=== PATIENT | male | born 1990 | race Two or more races ===

== ENCOUNTER 2016-08-21 17:37 | Emergency (ER) | payer SELFPAY ==
[2016-08-21 18:08] VITALS: BP 128/76
--- NOTE | 2016-08-21 18:21 | UC ---
[facility] HPI - HPI Summary HPI Summary: broke a tooth last year and got antibiotics from the dentist--pain resolved, did not do any further treatment--For the past week he has had return and increasing amount of pain--some swelling noted in jaw last night - History of Current Complaint Chief Complaint: UCDentalProblem Stated Complaint: TOOTH PAIN Time Seen by Provider: 08/21/16 18:16 Hx Obtained From: Patient Onset/Duration: Lasting Weeks, Worse Since - past few days Severity: Moderate Pain Intensity: 8 Pain Scale Used: 0-10 Numeric Aggravating: Heat, Cold, Chewing Alleviating: Nothing Related History: Previous Dental Care on Same Tooth, Swelling - Allergies/Home Medications Allergies/Adverse Reactions: Allergies Allergy/AdvReac Type Severity Reaction Status Date / Time No Known Allergies Allergy Verified 08/21/16 18:00 PMH/Surg Hx/FS Hx/Imm Hx Previously Healthy: No Endocrine History Of: Denies: Diabetes, Thyroid Disease Cardiovascular History Of: Denies: Cardiac Disorders, Hypertension Respiratory History Of: Reports: Asthma Denies: COPD GI/ History Of: Reports: Gastroesophageal Reflux Denies: Ulcer - Surgical History Surgical History: Yes Surgery Procedure, Year, and Place: ENDOSCOPY. RIGHT leg fracture. LEFT wrist fracture - Family History Known Family History: Positive: Respiratory Disease - asthma - Social History Occupation: Employed Full-time - [employer] Lives: With Family Alcohol Use: Rare Substance Use Type: Marijuana Substance Use Comment - Amount & Last Used: 04/29/14 Smoking Status (MU): Light Every Day Tobacco Smoker Type: Cigarettes Amount Used/How Often: 2.5 cigs Have You Smoked in the Last Year: Yes - in the process of quitting Review of Systems Constitutional: Negative Skin: Negative Eyes: Negative ENT: Dental Pain - #19 is broken Respiratory: Negative Cardiovascular: Negative Gastrointestinal: Negative Genitourinary: Negative Motor: Negative Neurovascular: Negative Musculoskeletal: Negative Neurological: Negative Psychological: Negative All Other Systems Reviewed And Are Negative: Yes Physical Exam Triage Information Reviewed: Yes Appearance: Well-Appearing, No Pain Distress, Well-Nourished Vital Signs: Initial Vital Signs Temp 98 F 08/21/16 18:00 Pulse 84 08/21/16 18:00 Resp 18 08/21/16 18:00 BP 128/76 08/21/16 18:00 Pulse Ox 97 01/14/17 18:00 Vital Signs Reviewed: Yes Eye Exam: Normal Eyes: Positive: Conjunctiva Clear ENT Exam: Normal ENT: Positive: Normal ENT inspection, Hearing grossly normal, Pharynx normal, TMs normal. Negative: Nasal congestion, Nasal drainage, Trismus, Muffled/ hoarse voice Dental Exam: Other Dental: Positive: Percussion Tenderness @ - 19, Abscess @ - left lower jaw Neck exam: Normal Neck: Positive: Supple, Nontender, No Lymphadenopathy Respiratory Exam: Normal Respiratory: Positive: Chest non-tender, Lungs clear, Normal breath sounds, No respiratory distress, No accessory muscle use Cardiovascular Exam: Normal Cardiovascular: Positive: RRR, No Murmur, Pulses Normal, Brisk Capillary Refill Musculoskeletal Exam: Normal Musculoskeletal: Positive: Strength Intact, ROM Intact, No Edema Neurological Exam: Normal Neurological: Positive: Alert, Muscle Tone Normal Psychological Exam: Normal Psychological: Positive: Normal Response To Family Skin Exam: Normal Dental Complaint Course/Dx - Course Course Of Treatment: Pain med , antibiodic, resources and referral for further care, smoking cesation information and support - Differential Dx/Diagnosis Differential Diagnosis/Dx: Dental Abscess, Dental Caries, Fractured Tooth, Odontogenic Pain Provider Diagnoses: Dental fracture #19, with abscess, nicotine dependant Discharge - Discharge Plan Condition: Stable Disposition: HOME Prescriptions: Amoxicillin CAP* 500 mg PO TID #29 cap HYDROcodone/ACETAMIN 5-325 MG* [[place] 5-325 TAB*] 1 tab PO Q6H PRN #16 tab MDD 4 PRN Reason: pain Naproxen [Naproxen 500 MG TABS] 500 mg PO BID PRN #20 tab PRN Reason: Pain Patient Education Materials: Dental Abscess (ED), Dental Caries (ED) Referrals: [facility]ERR[facility] [Outside] - If Needed No Primary Care Phys,NOPCP [Primary Care Provider] - Additional Instructions: See Dental Referral Sheet--For assistance in receiving dental care
[2016-08-21] MEDS ORDERED: HYDROcodone/ACETAMIN 5-325 MG* 1 TAB PO ONE (18:27)
[2016-08-21] MEDS ORDERED: Amoxicillin PO (*) 500 MG CAP PO ONE (18:27)
== END 2016-08-21 18:39 | disposition home or self-care (01) ==
LOC: UCEAST 17:37
DX: K03.81 Cracked tooth (principal); K04.7 Periapical abscess without sinus; F17.210 Nicotine dependence, cigarettes, uncomplicated
CPT/HCPCS: 99212; A9270-GY; G0463

== ENCOUNTER 2016-11-12 11:36 | Emergency (ER) | payer SELFPAY ==
[2016-11-12] MEDS ORDERED: Lidocaine 1% MPF* 2 ML VIAL ONE (16:17)
[2016-11-12 17:08] VITALS: BP 137/75
--- NOTE | 2016-11-12 19:05 | UC ---
Bryon Hendrickson Erika, scribed for Abbie Scott DO on 11/12/16 at 1552 . Laceration HPI - HPI Summary HPI Summary: Patient is a 26-year-old male presenting to [facility] with a CC of right wrist laceration. Patient reports that he slipped and fell on his steps while he was leaving his house at 10:00 this morning. Patient denies any other symptoms, including fever, chills, diaphoresis, headache, cough, chest pain, nausea, vomiting, diarrhea, myalgias, and rashes. Hx asthma. FHx HTN, DM, CA. Patient is a light every day smoker, but is trying to quit. Patient works as a cook. - History Of Current Complaint Chief Complaint: UCLaceration Stated Complaint: WRIST LAC Time Seen by Provider: 11/12/16 15:38 Hx Obtained From: Patient Laceration Location: Wrist - R Onset/Duration: Sudden Onset, Lasting Hours, Still Present Severity: Moderate Pain Intensity: 0 Pain Scale Used: 0-10 Numeric Aggravating Factors: Nothing - Allergies/Home Medications Allergies/Adverse Reactions: Allergies Allergy/AdvReac Type Severity Reaction Status Date / Time No Known Allergies Allergy Verified 11/12/16 14:35 PMH/Surg Hx/FS Hx/Imm Hx Endocrine History Of: Denies: Diabetes, Thyroid Disease Cardiovascular History Of: Denies: Cardiac Disorders, Hypertension Respiratory History Of: Reports: Asthma Denies: COPD GI/ History Of: Reports: Gastroesophageal Reflux Denies: Ulcer - Surgical History Surgical History: Yes Surgery Procedure, Year, and Place: ENDOSCOPY. RIGHT leg fracture. LEFT wrist fracture - Family History Known Family History: Positive: Cardiac Disease, Diabetes, Respiratory Disease - asthma, Other - [place] - Social History Occupation: Employed Full-time Alcohol Use: None Substance Use Type: Marijuana Substance Use Comment - Amount & Last Used: 04/29/14 Smoking Status (MU): Light Every Day Tobacco Smoker Type: Cigarettes Amount Used/How Often: 2.5 cigs Have You Smoked in the Last Year: Yes - in the process of quitting Cessation Counseling: Patient Advised to Stop - Immunization History Most Recent Tetanus Shot: unknown Review of Systems Constitutional: Negative Skin: Other - Laceration at the right wrist Eyes: Negative ENT: Negative Respiratory: Negative Cardiovascular: Negative Gastrointestinal: Negative Genitourinary: Negative Motor: Negative Neurovascular: Negative Musculoskeletal: Negative Neurological: Negative Psychological: Negative All Other Systems Reviewed And Are Negative: Yes Physical Exam Triage Information Reviewed: Yes Appearance: Well-Appearing, No Pain Distress, Well-Nourished Vital Signs: Initial Vital Signs Temp 98.9 F 11/12/16 14:37 Pulse 78 11/12/16 14:37 Resp 14 11/12/16 14:37 BP 132/79 11/12/16 14:37 Pulse Ox 100 11/12/16 14:37 Vital Signs Reviewed: Yes Eyes: Positive: Conjunctiva Clear. Negative: Discharge ENT: Positive: Hearing grossly normal. Negative: Muffled/hoarse voice Neck: Positive: Supple, Nontender Respiratory: Positive: Lungs clear, Normal breath sounds, No respiratory distress, No accessory muscle use Cardiovascular: Positive: RRR, No Murmur Musculoskeletal Exam: Normal, Other - Bones of the right hand and wrist were palpated extensively and no tenderness was elicited Neurological: Positive: Alert, Muscle Tone Normal Psychological Exam: Normal Psychological: Positive: Age Appropriate Behavior Skin Exam: Other - 2 cm laceration at the right wrist Laceration Repair - Laceration Repair 1 Description: Linear - at the right wrist Laceration Size After Repair: Length (cm) - 2, Width (mm) - 1, Depth (mm) - 1 Modified For Repair: No Type Injection: Local Anesthesia Used: 1.0% Lido Cleansing Completed Via Routine Prep: Yes Irrigation With Pressure Irrigation Device: Yes Closure Material: Sutures - 5 Closure Method: Single Layer Suture Of: Skin Suture Type: Nylon - 5.0 Laceration Course/Dx - Differential Dx - Laceration/Wound Differental Diagnoses: Abrasion, Laceration Provider Diagnoses: LACERATION REPAIR Discharge - Discharge Plan Condition: Stable Disposition: HOME Patient Education Materials: Laceration (ED) Referrals: No Primary Care Phys,NOPCP [Primary Care Provider] - Additional Instructions: FOLLOW-UP CARE: RETURN HERE FOR SUTURE REMOVAL IN 7-9 DAYS. AND You should establish with a private physician for follow-up care. If you are unable to get a timely appointment, or if you are worsening, call us or return for re-evaluation. An additional resource available to assist in finding the appropriate physician for your health care needs is the Physician Referral Center. You may contact them by calling [phone]. The documentation as recorded by the Bryon valladares Erika accurately reflects the service I personally performed and the decisions made by me, Abbie Scott DO.
== END 2016-11-12 17:09 | disposition home or self-care (01) ==
LOC: UCEAST 11:36
DX: S61.511A Laceration without foreign body of right wrist, initial encounter (principal); W01.0XXA Fall on same level from slipping, tripping and stumbling without subsequent striking against object, initial encounter; Y92.009 Unspecified place in unspecified non-institutional (private) residence as the place of occurrence of the external cause; F17.200 Nicotine dependence, unspecified, uncomplicated; J45.909 Unspecified asthma, uncomplicated
CPT/HCPCS: 12001; 99211; G0463

== ENCOUNTER 2016-12-06 16:20 | Emergency (ER) | payer SELFPAY ==
[2016-12-06 19:12] VITALS: BP 132/102
--- NOTE | 2016-12-06 19:22 | UC ---
[facility] HPI - HPI Summary HPI Summary: L lower rear molar pain has been chronic for months, marked increase in pain with trace swelling in the last 48 hours. Denies fever. Knows tooth #17 is impacted and needs it out, is in the process of getting insurance. Needs to wait until the end of the month because he needs to work through graduation season. - History of Current Complaint Chief Complaint: UCDentalProblem Stated Complaint: TOOTH PAIN Time Seen by Provider: 12/06/16 19:02 Hx Obtained From: Patient Onset/Duration: Gradual Onset Severity: Moderate Aggravating: Chewing Alleviating: Nothing Related History: Swelling - Allergies/Home Medications Allergies/Adverse Reactions: Allergies Allergy/AdvReac Type Severity Reaction Status Date / Time No Known Allergies Allergy Verified 12/06/16 19:12 PMH/Surg Hx/FS Hx/Imm Hx Endocrine History Of: Denies: Diabetes, Thyroid Disease Cardiovascular History Of: Denies: Cardiac Disorders, Hypertension Respiratory History Of: Reports: Asthma Denies: COPD GI/ History Of: Reports: Gastroesophageal Reflux Denies: Ulcer - Surgical History Surgical History: Yes Surgery Procedure, Year, and Place: ENDOSCOPY. RIGHT leg fracture. LEFT wrist fracture - Family History Known Family History: Positive: Cardiac Disease, Diabetes, Respiratory Disease - asthma, Other - CA - Social History Occupation: Employed Full-time Alcohol Use: None Substance Use Type: Marijuana Substance Use Comment - Amount & Last Used: 04/29/14 Smoking Status (MU): Light Every Day Tobacco Smoker Type: Cigarettes Amount Used/How Often: 2.5 cigs Have You Smoked in the Last Year: Yes - in the process of quitting - Immunization History Most Recent Tetanus Shot: unknown Review of Systems Constitutional: Negative Skin: Negative Eyes: Negative ENT: Dental Pain Respiratory: Negative Cardiovascular: Negative Gastrointestinal: Negative Genitourinary: Negative Motor: Negative Neurovascular: Negative Musculoskeletal: Negative Neurological: Negative Psychological: Negative All Other Systems Reviewed And Are Negative: Yes Physical Exam Triage Information Reviewed: Yes Appearance: Well-Appearing, Well-Nourished, Pain Distress - mild Vital Signs: Initial Vital Signs Temp 98.1 F 12/06/16 19:09 Pulse 69 12/06/16 19:09 Resp 20 12/06/16 19:09 BP 132/102 12/06/16 19:09 Pulse Ox 99 12/06/16 19:09 Vital Signs Reviewed: Yes Eye Exam: Normal Eyes: Positive: Conjunctiva Clear ENT Exam: Normal ENT: Positive: Normal ENT inspection, Hearing grossly normal, Pharynx normal, TMs normal Dental: Positive: Percussion Tenderness @ - #17 Neck exam: Normal Neck: Positive: Supple, Nontender Respiratory Exam: Normal Respiratory: Positive: Chest non-tender, Lungs clear, Normal breath sounds, No respiratory distress, No accessory muscle use Cardiovascular Exam: Normal Cardiovascular: Positive: RRR, No Murmur Musculoskeletal Exam: Normal Neurological Exam: Normal Neurological: Positive: Alert Psychological Exam: Normal Skin Exam: Normal Dental Complaint Course/Dx - Differential Dx/Diagnosis Provider Diagnoses: impacted tooth #17 Discharge - Discharge Plan Condition: Stable Disposition: HOME Prescriptions: HYDROcodone/ACETAMIN 5-325 MG* [[place] 5-325 TAB*] 1 tab PO Q6H PRN #12 tab MDD 4 PRN Reason: Pain Naproxen Sodium [Naproxen Sodium 500 MG TAB] 500 mg PO BID #20 tab Penicillin VK TAB 500 MG(NF) [Penicillin VK 500 mg Tab(NF)] 500 mg PO QID #28 tab Patient Education Materials: Toothache (ED) Forms: *Work Release Referrals: No Primary Care Phys,NOPCP [Primary Care Provider] - Additional Instructions: Please follow up with a dentist as soon as possible.
== END 2016-12-06 19:30 | disposition home or self-care (01) ==
LOC: UCEAST 16:20
DX: K01.1 Impacted teeth (principal); J45.909 Unspecified asthma, uncomplicated; K21.9 Gastro-esophageal reflux disease without esophagitis; F17.210 Nicotine dependence, cigarettes, uncomplicated
CPT/HCPCS: 99212; G0463

== ENCOUNTER 2017-01-21 16:50 | Emergency (ER) | payer SELFPAY ==
--- NOTE | 2017-01-21 18:19 | ED ---
Throat Pain/Nasal Congestion - HPI Summary HPI Summary: Patient arrives to ED with CC of pain over lower left molar radiating to the jaw and ear and neck. Denies trismus, drooling or dysphagia. Pain is 10/10, throbbing and has been present x 2 days. Denies airway compromise or SOB. Denies ear pain, eye pain, blurry vision or double vision. He has asthma controlled on an inhaler but is otherwise healthy. Left lower jaw began as a "lump" and began to throb with radiation on day 2. Pain is worse with chewing and cold drinks, better with ibuprofen, but only improves slightly. Patient denies dental care for several years. States he cannot afford a dentist. Denies previous dental infections. - History of Current Complaint Chief Complaint: EDDentalPain Time Seen by Provider: 01/21/17 17:56 Hx Obtained From: Patient Onset/Duration: Sudden Onset Severity: Moderate Associated Signs And Symptoms: Positive: Negative - Allergies/Home Medications Allergies/Adverse Reactions: Allergies Allergy/AdvReac Type Severity Reaction Status Date / Time No Known Allergies Allergy Verified 12/06/16 19:12 PMH/Surg Hx/FS Hx/Imm Hx Previously Healthy: Yes Endocrine/Hematology History: Denies: Hx Diabetes, Hx Thyroid Disease Cardiovascular History: Denies: Hx Hypertension Respiratory History: Reports: Hx Asthma Denies: Hx Chronic Obstructive Pulmonary Disease (COPD) GI History: Denies: Hx Ulcer - Surgical History Surgery Procedure, Year, and Place: ENDOSCOPY. RIGHT leg fracture. LEFT wrist fracture - Immunization History Date of Tetanus Vaccine: <10years Hx Pertussis Vaccination: No Immunizations Up to Date: Unable to Obtain/Confirm Infectious Disease History: No Infectious Disease History: Reports: Hx Shingles Denies: Hx Hepatitis, Hx Human Immunodeficiency Virus (HIV), History Other Infectious Disease, Traveled Outside the [place] in Last 30 Days - Family History Known Family History: Positive: Cardiac Disease, Diabetes, Respiratory Disease - asthma, Other - CA - Social History Occupation: Employed Full-time Lives: With Family Alcohol Use: None Hx Substance Use: No Substance Use Type: Reports: Marijuana Substance Use Comment - Amount & Last Used: daily Hx Tobacco Use: Yes Smoking Status (MU): Light Every Day Tobacco Smoker Type: Cigarettes Amount Used/How Often: 2.5 cigs Have You Smoked in the Last Year: Yes - in the process of quitting Review of Systems Constitutional: Negative Eyes: Negative Positive: Dental Pain Cardiovascular: Negative Respiratory: Negative Positive: no symptoms reported, see HPI Musculoskeletal: Negative Neurological: Negative Psychological: Normal All Other Systems Reviewed And Are Negative: Yes Physical Exam Triage Information Reviewed: Yes Vital Signs On Initial Exam: Initial Vitals Temp Pulse Resp BP Pulse Ox 97.7 F 98 20 120/75 98 01/21/17 16:52 01/21/17 16:52 01/21/17 16:52 01/21/17 16:52 01/21/17 16:52 Vital Signs Reviewed: Yes Appearance: Positive: Well-Appearing, Well-Nourished Skin: Positive: Warm, Skin Color Reflects Adequate Perfusion Head/Face: Positive: Normal Head/Face Inspection Eyes: Positive: EOMI, HARRY, Conjunctiva Clear ENT: Positive: Pharynx normal Dental: Positive: Percussion Tenderness @ - left lower mandible, Gross Decay/ Caries @ - left upper and lower canines, Abscess @ - left lower #19 Cardiovascular: Positive: RRR, Pulses are Symmetrical in both Upper and Lower Extremities Musculoskeletal: Positive: Normal, Strength/ROM Intact Neurological: Positive: Speech Normal Psychiatric: Positive: Normal AVPU Assessment: Alert Diagnostics - Vital Signs Vital Signs Temp Pulse Resp BP Pulse Ox 01/21/17 16:55 97.7 F 96 20 120/75 97 01/21/17 16:52 97.7 F 98 20 120/75 98 - Laboratory Lab Statement: Any lab studies that have been ordered have been reviewed, and results considered in the medical decision making process. EENT Course/Dx - Course Course Of Treatment: Dental abscess seen over area of concern. Erythema at site of pain. No drainage from area. Several dental caries, cavities, crowding and broken teeth throughout. Pain on palpation over lower left mandible. Slight tenderness throughout the left neck. No TMJ tenderness. No pain with opening and closing mouth. Poor dental hygiene and outpatient dental care. Will treat for possible dental infection/abscess based on symptoms of pain and radiation to jaw and ear. No allergies. Will treat with Pencillin. Pain medication X 1 day given. Patient to follow up immediately with dentist.Patient made aware of plan and is OK with discharge. Patient will follow up with PCP and return if symptoms become worse. Return precautions given, medications and side effects reviewed. - Differential Diagnoses Differential Diagnoses: Dental Abscess, Dental Caries, Odontogenic Pain - Diagnoses Provider Diagnoses: Dental abscess Discharge - Discharge Plan Condition: Stable Disposition: HOME Prescriptions: HYDROcodone/ACETAMIN 5-325 MG* [[place] 5-325 TAB*] 1 tab PO Q4H PRN #6 tab MDD 6 PRN Reason: Pain Penicillin VK TAB 500 MG(NF) [Penicillin VK 500 mg Tab(NF)] 500 mg PO QID #28 tab MDD 4 Referrals: No Primary Care Phys,NOPCP [Primary Care Provider] - Additional Instructions: You have been diagnosed with dental pain with possible infection: Antibiotics as prescribed to you. 500mg Penicillin 4 times daily for 7 days Salt water rinses several times per day will improve healing time. Ibuprofen 600mg three times daily with meals for discomfort. May use lollicaines over the area for comfort. Follow up with a dentist for routine care to prevent recurrence of infections. If fever, worsening pain or swelling develops, see your PCP, dentist or come back to the Emergency Department. Images - Images Dental: 1 - abscess without drainage
[2017-01-21 18:23] VITALS: BP 127/68
== END 2017-01-21 18:22 | disposition home or self-care (01) ==
LOC: ED 16:50
DX: K04.7 Periapical abscess without sinus (principal); J45.909 Unspecified asthma, uncomplicated; F12.90 Cannabis use, unspecified, uncomplicated; F17.210 Nicotine dependence, cigarettes, uncomplicated
CPT/HCPCS: 99282

== ENCOUNTER 2017-01-24 11:46 | Emergency (ER) | payer SELFPAY ==
[2017-01-24 13:10] VITALS: BP 123/73
--- NOTE | 2017-01-24 13:50 | UC ---
Dental HPI - HPI Summary HPI Summary: LEFT SIDED DENTAL PAIN AND SWELLING (#17, 18, 19, 20) HAS BEEN HAVING ISSUES SINCE JUNE. HAS BEEN ON PCN (12/06/16, AND 01/21/17); HAS TRIED TO MAKE DENTAL APPOINTMENTS , BUT NO ONE WILL SEE HIM UNTIL SWELLING GOES DOWN. NO FEVER. NO DROOLING. NO NECK PAIN OR TONGUE PAIN. 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 RIGHT leg fracture. LEFT wrist fracture - Family History Known Family History: Positive: Cardiac Disease, Diabetes, Respiratory Disease - asthma, Other - CA - Social History Occupation: Employed Full-time Lives: With Family Alcohol Use: Rare Substance Use Type: Marijuana Substance Use Comment - Amount & Last Used: daily Smoking Status (MU): Light Every Day Tobacco Smoker Type: Cigarettes Amount Used/How Often: 2.5 cigs Have You Smoked in the Last Year: Yes - in the process of quitting - Immunization History Most Recent Tetanus Shot: unknown Review of Systems Constitutional: Negative Skin: Negative Eyes: Negative ENT: Dental Pain Respiratory: Negative Cardiovascular: Negative Gastrointestinal: Negative Genitourinary: Negative Motor: Negative Neurovascular: Negative Musculoskeletal: Negative Neurological: Negative Psychological: Negative All Other Systems Reviewed And Are Negative: Yes Physical Exam Triage Information Reviewed: Yes Appearance: Well-Appearing, No Pain Distress, Well-Nourished Vital Signs: Initial Vital Signs Temp 98.5 F 01/24/17 13:04 Pulse 74 01/24/17 13:04 Resp 16 01/24/17 13:04 BP 123/73 01/24/17 13:04 Pulse Ox 100 01/24/17 13:04 Vital Signs Reviewed: Yes Eye Exam: Normal ENT Exam: Normal ENT: Positive: Normal ENT inspection, Hearing grossly normal, Pharynx normal, TMs normal Dental: Positive: Percussion Tenderness @ - 17,18,19,20, Abscess @ - 17,18,19,20 Neck exam: Normal Neck: Positive: Supple, Nontender, No Lymphadenopathy Respiratory Exam: Normal Respiratory: Positive: Chest non-tender, Lungs clear, Normal breath sounds, No respiratory distress, No accessory muscle use Cardiovascular Exam: Normal Cardiovascular: Positive: RRR, No Murmur, Pulses Normal Abdominal Exam: Normal Abdomen Description: Positive: Nontender, No Organomegaly Musculoskeletal Exam: Normal Neurological Exam: Normal Psychological Exam: Normal Skin Exam: Normal Dental Complaint Course/Dx - Differential Dx/Diagnosis Differential Diagnosis/Dx: Dental Abscess, Dental Caries, Fractured Tooth, Chung's Angina, Mandibular Trauma, Odontogenic Pain, Peridontic Disease, Peritonsillar Abcess Provider Diagnoses: DENTAL ABSCESS LEFT LOWER JAW - Physician Notification/Consults Instructed by Provider To: Have Pt Call For Appt. Discharge - Discharge Plan Condition: Stable Disposition: HOME Prescriptions: Clindamycin Cap(NF) [Cleocin 300 mg Cap(NF)] 300 mg PO QID #40 cap HYDROcodone/ACETAMIN 5-325 MG* [[place] 5-325 TAB*] 1 tab PO Q8H PRN #12 tab MDD THREE TABS PRN Reason: Pain - Moderate Patient Education Materials: Dental Abscess (ED) Referrals: [facility]YS[facility]IAN REFERRAL [Outside] No Primary Care Phys,NOPCP [Primary Care Provider] - Additional Instructions: dental referral sheets given Images Dental: 1 - edema tenderness here
== END 2017-01-24 13:50 | disposition home or self-care (01) ==
LOC: UCEAST 11:46
DX: K04.7 Periapical abscess without sinus (principal); F17.210 Nicotine dependence, cigarettes, uncomplicated
CPT/HCPCS: 99212; G0463

== ENCOUNTER 2017-01-27 11:00 | Emergency (ER) | payer SELFPAY ==
[2017-01-27] MEDS ORDERED: oxyCODONE/Acetamin 5/325 MG* TAB PO ONE (12:59)
--- NOTE | 2017-01-27 14:04 | ED ---
Throat Pain/Nasal Congestion - HPI Summary HPI Summary: Pt here w/ abscess along Lt lower jaw x weeks. Has had 2 rounds of anbx w/o relief (currently taking clindamycin). Pain is getting worse - drinking clear liquids only. Has been taking norco but last pill today. Denies fever, chills, drainage, trouble swallowing or breathing. Does not have a dentist but called today to try to get an appointment w/ [facility] [place]. 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 - Allergies/Home Medications Allergies/Adverse Reactions: Allergies Allergy/AdvReac Type Severity Reaction Status Date / Time No Known Allergies Allergy Verified 12/06/16 19:12 PMH/Surg Hx/FS Hx/Imm Hx Previously Healthy: Yes Endocrine/Hematology History: Denies: Hx Anticoagulant Therapy, Hx Blood Disorders, Hx Diabetes, Hx Thyroid Disease, Autoimmune Disease Cardiovascular History: Denies: Hx Hypertension Respiratory History: Reports: Hx Asthma Denies: Hx Chronic Obstructive Pulmonary Disease (COPD) GI History: Denies: Hx Ulcer - Surgical History Surgery Procedure, Year, and Place: ENDOSCOPY. RIGHT leg fracture. LEFT wrist fracture - Immunization History Date of Tetanus Vaccine: <10years Infectious Disease History: No Infectious Disease History: Reports: Hx Shingles Denies: Hx Hepatitis, Hx Human Immunodeficiency Virus (HIV), History Other Infectious Disease, Traveled Outside the [place] in Last 30 Days - Family History Known Family History: Positive: Cardiac Disease, Diabetes, Respiratory Disease - asthma, Other - [place] - Social History Lives: With Family Alcohol Use: Rare Hx Substance Use: No Substance Use Type: Reports: Marijuana Substance Use Comment - Amount & Last Used: daily Hx Tobacco Use: Yes Smoking Status (MU): Current Every Day Smoker Type: Cigarettes Amount Used/How Often: 2.5 cigs Have You Smoked in the Last Year: Yes - in the process of quitting Review of Systems Constitutional: Negative Negative: Fever, Chills Positive: Dental Pain - see HPI. Negative: Ear Ache, Nasal Discharge Negative: Chest Pain Negative: Shortness Of Breath Negative: Vomiting, Nausea Positive: Arthralgia - limited ROM jaw d/t pain Neurological: Negative Negative: Headache Positive: Anxious All Other Systems Reviewed And Are Negative: Yes Physical Exam Triage Information Reviewed: Yes Vital Signs On Initial Exam: Initial Vitals Temp Pulse Resp BP Pulse Ox 98.2 F 76 18 157/89 100 01/27/17 11:24 01/27/17 11:24 01/27/17 11:24 01/27/17 11:24 01/27/17 11:24 Vital Signs Reviewed: Yes Appearance: Positive: Pain Distress Skin: Positive: Warm - Lt lower cheek w/ edema - difficulty speaking d/t pain and swelling, Dry Head/Face: Positive: Normal Head/Face Inspection Eyes: Positive: Normal, EOMI, Conjunctiva Clear ENT: Positive: Hearing grossly normal, Pharynx normal - handling secretions, TMs normal, Trismus - mild Dental: Positive: Abscess @ - Lt lower jaw between mandible and buccal mucosa - TTP, edematous/taught tissue - no drainage Respiratory/Lung Sounds: Positive: Breath Sounds Present Cardiovascular: Positive: Normal Musculoskeletal: Positive: Normal, Strength/ROM Intact Neurological: Positive: Normal, Sensory/Motor Intact, Alert, Oriented to Person Place, Time, CN Intact II-III Psychiatric: Positive: Normal Procedures - Procedure Summary Procedure Summary: Placed lidocaine topical over site between gingiva and buccal mucosa along #20, 21 - this was followed by injection of lidocaine w/ epinephrine - once anesthesia set in, area lanced w/ minimal release of blood only - 2nd attempt more laterally w/ same result - 3rd attempt w/ same result. Pt rinsed mouth coiously w/ saline rinse after. Discussed further manipulation was futile in this setting and arranged f/u w/ dentist tomorrow - Dr. Goodwin. Pt and partner agree to call for appt details. Diagnostics - Vital Signs Vital Signs Temp Pulse Resp BP Pulse Ox 01/27/17 13:07 22 01/27/17 12:52 98.2 F 76 18 157/89 100 01/27/17 11:24 98.2 F 76 18 157/89 100 - Laboratory Lab Statement: Any lab studies that have been ordered have been reviewed, and results considered in the medical decision making process. EENT Course/Dx - Diagnoses Provider Diagnoses: Dental abscess Discharge - Discharge Plan Condition: Stable Disposition: HOME Prescriptions: HYDROcodone/ACETAMIN 5-325 MG* [Fossil 5-325 TAB*] 1 tab PO Q6H PRN #15 tab MDD 4 PRN Reason: Pain Patient Education Materials: Dental Abscess (ED) Referrals: No Primary Care Phys,NOPCP [Primary Care Provider] - Additional Instructions: You appear to have an abscess - this did not drain well today so you are being referred to dentist, Dr. Sidhu. Call today to schedule an appointment for tomorrow. Continue saline mouth rinses multiple times a day. Complete antibiotics unless directed otherwise by dentist. You may continue ibuprofen alternating with norco for pain.
[2017-01-27 16:41] VITALS: BP 158/89
== END 2017-01-27 16:41 | disposition home or self-care (01) ==
LOC: ED 11:00
DX: K04.7 Periapical abscess without sinus (principal); K08.89 Other specified disorders of teeth and supporting structures; F41.9 Anxiety disorder, unspecified; F17.210 Nicotine dependence, cigarettes, uncomplicated
CPT/HCPCS: 99282; A9270-GY

== ENCOUNTER → 2017-02-10 11:53 | Emergency (ER) | payer SELFPAY ==
[2017-02-10 13:26] VITALS: BP 123/67
--- NOTE | 2017-02-13 22:57 | ED ---
Anthony Hendrickson Salem, scribed for Javier Le MD on 02/10/17 at 1455 . Progress - Progress Note Progress Note: Patient is a 26 y/o M. Went to see pt, but his chair was empty. Course/Dx - Diagnoses Provider Diagnoses: Patient left without being seen The documentation as recorded by the scribeAnthony Salem accurately reflects the service I personally performed and the decisions made by Rey najera Jerry, MD.
== END | disposition left against medical advice (07) ==
LOC: ED 11:53
DX: R51 Headache (principal); Z53.21 Procedure and treatment not carried out due to patient leaving prior to being seen by health care provider

== ENCOUNTER 2018-01-03 11:51 | Emergency (ER) | payer SELFPAY ==
[2018-01-03 12:16] VITALS: BP 135/79
--- NOTE | 2018-02-07 09:23 | UC ---
Derek Hendrickson Stephanie, scribed for Dee Dee Mandujano MD on 01/03/18 at 1233 . General HPI - HPI Summary HPI Summary: The pt is a 27 y/o M presenting to with c/o cough with brown sputum that began on 12/29/17. Symptoms include chills, BOWERS, shakiness and vomiting. He denies sore throat and rash. The pt states he felt better on 12/31/17 but states he became nauseous and weak today. The pt reports he quit smoking 2 months ago. The pt has attempted to use his inhaler but has not felt relief of symptoms. - History of Current Complaint Chief Complaint: UCRespiratory Stated Complaint: URI Time Seen by Provider: 01/03/18 12:18 Hx Obtained From: Patient Onset/Duration: Gradual Onset, Lasting Days - 5, Still Present Timing: Constant Current Severity: Moderate Pain Intensity: 0 Associated Signs & Symptoms: Positive: Cough, Nausea, Vomiting, Weakness, Other - chills, BOWERS, shakiness - Allergy/Home Medications Allergies/Adverse Reactions: Allergies Allergy/AdvReac Type Severity Reaction Status Date / Time No Known Allergies Allergy Verified 12/06/16 19:12 PMH/Surg Hx/FS Hx/Imm Hx Previously Healthy: No Respiratory History: Asthma, Pneumonia Other History Of: Negative For: Anticoagulant Therapy - Surgical History Surgical History: Yes Surgery Procedure, Year, and Place: ENDOSCOPY. RIGHT leg fracture. LEFT wrist fracture - Family History Known Family History: Positive: Cardiac Disease, Diabetes, Respiratory Disease - asthma, Other - [place] - Social History Occupation: Employed Part-time Lives: With Family Alcohol Use: Rare Substance Use Type: Marijuana Substance Use Comment - Amount & Last Used: daily Smoking Status (MU): Former Smoker Type: Cigarettes Amount Used/How Often: 2.5 cigs Have You Smoked in the Last Year: Yes - in the process of quitting - Immunization History Most Recent Tetanus Shot: unknown Review of Systems Constitutional: Chills, Other - shakiness Skin: Negative Eyes: Negative ENT: Negative Respiratory: Negative Cardiovascular: Negative Gastrointestinal: Vomiting, Nausea Genitourinary: Negative Motor: Negative Neurovascular: Negative Musculoskeletal: Negative Neurological: Headache, Weakness Psychological: Negative All Other Systems Reviewed And Are Negative: Yes Physical Exam - Summary Physical Exam Summary: Appearance: Well-Nourished Eye Exam: Normal ENT Exam: posterior pharynx red and swollen, no sores or exudate Dentition: challenged, 1st lower Left molar is broken with buccal swelling. Neck: Normal, No adenopathy appreciated Respiratory Exam: Normal, no dyspnea, no tachypnea, normal respiratory rate, Scattered rhonchi (jefferson R base), occasional mild wheezes Chest non-tender, Lungs clear, Normal breath sounds, No respiratory distress, No accessory muscle use Cardiovascular Exam: Normal Cardiovascular: Heart rate regular, good general skin color, good capillary refill RRR, No Murmur, Pulses Normal - sitting up. heart rate correlates w left radial pulse, Brisk Capillary Refill Abdominal Exam: Normal Abdomen Description: Nontender, No Organomegaly, Soft Bowel Sounds: Present Musculoskeletal Exam: Normal Musculoskeletal: Strength Intact Neurological Exam: Normal: nonfocal, grossly intact Psychological Exam: Normal: conversing easily and appropriately Skin Exam: Normal: no visible or reported rash Triage Information Reviewed: Yes Vital Signs: Initial Vital Signs Temp 97.7 F 01/03/18 12:09 Pulse 81 01/03/18 12:09 Resp 18 01/03/18 12:09 BP 135/79 01/03/18 12:09 Pulse Ox 99 01/03/18 12:09 Vital Signs Reviewed: Yes Course/Dx - Course Course Of Treatment: declines cxr. Suspect pneumonia, based on s/ sx. He will f/u pcp hopefully in the next couple weeks. Is aware of the need to seek medical attention for worse or new problems. . Appreciative of care, but declines further work up at this time. Questions as posed answered to the best of my ability. - Differential Dx - Multi-Symptom Provider Diagnoses: Bronchospasm. URI, suspicious pneumonia Discharge - Sign-Out/Discharge Documenting (check all that apply): Patient Departure - Discharge - Discharge Plan Condition: Stable Disposition: HOME Prescriptions: Albuterol 2.5MG/3ML (0.083%)* [Ventolin 2.5 MG/3 ML NEB.GRETCHEN*] 2.5 mg INH Q4H PRN #1 box PRN Reason: Wheezing Albuterol HFA INHALER* [Ventolin HFA Inhaler*] 1 - 2 puff INH Q4H PRN #1 mdi PRN Reason: Wheezing Amoxicillin/Clavulanate TAB* [Augmentin TAB 875*] 875 mg PO BID #28 tab Patient Education Materials: Pneumonia (ED) Forms: *Work Release Referrals: [facility] [Outside] - 2 Weeks Additional Instructions: Please follow up with your primary care provider in 1-2 weeks. Seek medical attention for worse or new problems in the meantime. - Billing Disposition and Condition Condition: STABLE Disposition: Home The documentation as recorded by the Derek valladares Stephanie accurately reflects the service I personally performed and the decisions made by me, Dee Dee Mandujano MD.
== END 2018-01-03 13:12 | disposition home or self-care (01) ==
LOC: UCEAST 11:51
DX: J06.9 Acute upper respiratory infection, unspecified (principal); J45.909 Unspecified asthma, uncomplicated; R11.2 Nausea with vomiting, unspecified; Z82.49 Family history of ischemic heart disease and other diseases of the circulatory system; Z83.3 Family history of diabetes mellitus; Z82.5 Family history of asthma and other chronic lower respiratory diseases; Z80.9 Family history of malignant neoplasm, unspecified; Z87.891 Personal history of nicotine dependence
CPT/HCPCS: 99212; G0463

== ENCOUNTER 2018-07-28 19:08 | Emergency (ER) | payer SELFPAY ==
[2018-07-28 19:49] VITALS: BP 143/79
--- NOTE | 2018-07-28 20:03 | UC ---
Respiratory Complaint HPI - HPI Summary HPI Summary: 27 yo male presents with fatigue, body aches, and cough for the last 3 days. He tells me that his two children were recently dx'd with PNA and pt has had PNA many times in his life and this feels the same. He has not been taking anything OTC for his symptoms. Has felt warm at times, but has not taken his temperature. Denies sore throat, sinus symptoms, SOB, chest pain, abdominal pain , n/v. - History of Current Complaint Chief Complaint: UCRespiratory Stated Complaint: COUGH Time Seen by Provider: 07/28/18 20:03 Hx Obtained From: Patient Onset/Duration: Sudden Onset Severity Initially: Moderate Severity Currently: Severe Pain Intensity: 8 Pain Scale Used: 0-10 Numeric - Allergies/Home Medications Allergies/Adverse Reactions: Allergies Allergy/AdvReac Type Severity Reaction Status Date / Time No Known Allergies Allergy Verified 07/28/18 19:49 PMH/Surg Hx/FS Hx/Imm Hx Respiratory History: Asthma Other History Of: Negative For: Anticoagulant Therapy - Surgical History Surgical History: Yes Surgery Procedure, Year, and Place: ENDOSCOPY. RIGHT leg fracture. LEFT wrist fracture - Family History Known Family History: Positive: Cardiac Disease, Diabetes, Respiratory Disease - asthma, Other - [place] - Social History Occupation: Employed Full-time Lives: With Family Alcohol Use: Daily Substance Use Type: Marijuana Substance Use Comment - Amount & Last Used: daily Smoking Status (MU): Current Every Day Smoker Type: Cigarettes Amount Used/How Often: 3 CIG/DAY Have You Smoked in the Last Year: Yes - in the process of quitting - Immunization History Most Recent Tetanus Shot: unknown Review of Systems All Other Systems Reviewed And Are Negative: Yes Constitutional: Positive: Fever, Fatigue Skin: Positive: Negative Eyes: Positive: Negative ENT: Positive: Negative Respiratory: Positive: Cough Cardiovascular: Positive: Negative Gastrointestinal: Positive: Negative Neurovascular: Positive: Negative Neurological: Positive: Negative Psychological: Positive: Negative Physical Exam - Summary Physical Exam Summary: GENERAL: NAD. WDWN. No pain distress. SKIN: No rashes, sores, lesions, or open wounds. HEENT: Head: AT/NC Eyes: Conjunctiva clear without inflammation or discharge. Ears: Hearing grossly normal. TMs intact, no bulging, erythema, or edema. Nose: Nasal mucosa pink and moist. NTTP maxillary and frontal sinus. Throat: Posterior oropharynx without exudates, erythema, or tonsillar enlargement. Uvula midline. NECK: Supple. Nontender. No lymphadenopathy. CHEST: Mild wheezing throughout. No r/r. No accessory muscle use. Breathing comfortably and in no distress. CV: RRR. Without m/r/g. Pulses intact. Cap refill <2seconds NEURO: Alert. PSYCH: Age appropriate behavior. Triage Information Reviewed: Yes Vital Signs: Initial Vital Signs Temp 99.5 F 07/28/18 19:44 Pulse 77 07/28/18 19:44 Resp 16 07/28/18 19:44 BP 143/79 07/28/18 19:44 Pulse Ox 99 07/28/18 19:44 Vital Signs Reviewed: Yes UC Diagnostic Evaluation - Laboratory O2 Sat by Pulse Oximetry: 99 Respiratory Course/Dx - Course Course Of Treatment: Given his hx of PNA and recent sick contacts with PNA, will treat with zpak. Advised to take tylenol/ibuprofen for his discomfort and to use his at home inhalers prn. F/u if symptoms do not improve or if they worsen. - Differential Dx/Diagnosis Provider Diagnosis: Cough Discharge - Sign-Out/Discharge Documenting (check all that apply): Patient Departure All imaging exams completed and their final reports reviewed: No Studies - Discharge Plan Condition: Stable Disposition: HOME Prescriptions: Azithromycin TAB* [Zithromax TAB (Z-VALERI) 250 mg #6 tabs] 2 tab PO .TODAY, THEN 1 DAILY #1 valeri Patient Education Materials: Bacterial Pneumonia (ED) Forms: *Work Release Referrals: No Primary Care Phys,NOPCP [Primary Care Provider] - Additional Instructions: If you develop a fever, shortness of breath, chest pain, new or worsening symptoms - please call your PCP or go to the ED. Your blood pressure was high at todays visit. Please see your primary provider within 4 weeks for recheck and re-evaluation. - Billing Disposition and Condition Condition: STABLE Disposition: Home
== END 2018-07-28 20:20 | disposition home or self-care (01) ==
LOC: UCEAST 19:08
DX: R05 Cough (principal); F17.210 Nicotine dependence, cigarettes, uncomplicated
CPT/HCPCS: 99212; G0463

== ENCOUNTER 2018-12-16 18:04 | Emergency (ER) | payer SELFPAY ==
[2018-12-16 19:40] VITALS: BP 132/85
[2018-12-16] MEDS ORDERED: Amoxicillin PO (*) 500 MG CAP PO ONE (19:56)
[2018-12-16] MEDS ORDERED: HYDROcodone/ACETAMIN 5-325 MG* 1 TAB PO ONE (19:57)
--- NOTE | 2018-12-16 20:01 | UC ---
Dental HPI - HPI Summary HPI Summary: right lower wisdom tooth has been partially erupted for about 5 years worsening pain , such that he cannot sleep, for the past 3 days insurance will be effective January 06 so he can get a dental appointment - History of Current Complaint Chief Complaint: UCDentalProblem Stated Complaint: TOOTH ACHE Time Seen by Provider: 12/16/18 19:48 Hx Obtained From: Patient Onset/Duration: Gradual Onset, Worse Since - past 3 days Pain Intensity: 9 Pain Scale Used: 0-10 Numeric Aggravating Factor(s): Nothing Alleviating Factor(s): Nothing Related History: Previous Dental Care on Same Tooth, Swelling - Allergies/Home Medications Allergies/Adverse Reactions: Allergies Allergy/AdvReac Type Severity Reaction Status Date / Time No Known Allergies Allergy Verified 12/16/18 19:40 Home Medications: Home Medications Ibuprofen TAB* [Motrin TAB* 800 MG] 800 mg PO Q6H 12/16/18 [History Confirmed ] PMH/Surg Hx/FS Hx/Imm Hx Previously Healthy: Yes Other History Of: Negative For: Anticoagulant Therapy - Surgical History Surgical History: Yes Surgery Procedure, Year, and Place: ENDOSCOPY. RIGHT leg fracture. LEFT wrist fracture - Family History Known Family History: Positive: Cardiac Disease, Diabetes, Respiratory Disease - asthma, Other - [place] - Social History Occupation: Employed Full-time Lives: With Family Alcohol Use: Daily Substance Use Type: Marijuana Substance Use Comment - Amount & Last Used: not for a week Smoking Status (MU): Light Every Day Tobacco Smoker Type: Cigarettes Amount Used/How Often: 3 CIG/DAY Have You Smoked in the Last Year: Yes - in the process of quitting - Immunization History Most Recent Tetanus Shot: unknown Review of Systems All Other Systems Reviewed And Are Negative: Yes Constitutional: Positive: Negative Skin: Positive: Negative Eyes: Positive: Negative ENT: Positive: Dental Pain - partially erupted right lower wisdom tooth with swelling Respiratory: Positive: Negative Cardiovascular: Positive: Negative Gastrointestinal: Positive: Negative Genitourinary: Positive: Negative Motor: Positive: Negative Neurovascular: Positive: Negative Musculoskeletal: Positive: Negative Neurological: Positive: Negative Psychological: Positive: Negative Is Patient Immunocompromised?: Yes Physical Exam Triage Information Reviewed: Yes Appearance: Well-Appearing, Well-Nourished, Pain Distress Vital Signs: Initial Vital Signs Temp 98.7 F 12/16/18 19:33 Pulse 76 12/16/18 19:33 Resp 18 12/16/18 19:33 BP 132/85 12/16/18 19:33 Pulse Ox 100 12/16/18 19:33 Vital Signs Reviewed: Yes Eye Exam: Normal Eyes: Positive: Conjunctiva Clear ENT Exam: Normal ENT: Positive: Normal ENT inspection, Hearing grossly normal, Pharynx normal, TMs normal, Dental tenderness, Uvula midline. Negative: Nasal congestion, Tonsillar swelling, Muffled voice, Hoarse voice, Sinus tenderness Dental Exam: Other Dental: Positive: Percussion Tenderness @ - right lower wisdom tooth pain, Abscess @ Neck exam: Normal Neck: Positive: Supple, Nontender, No Lymphadenopathy Respiratory Exam: Normal Respiratory: Positive: Chest non-tender, No respiratory distress, No accessory muscle use Cardiovascular Exam: Normal Cardiovascular: Positive: RRR, No Murmur, Pulses Normal, Brisk Capillary Refill Musculoskeletal Exam: Normal Musculoskeletal: Positive: Strength Intact, ROM Intact, No Edema Neurological Exam: Normal Neurological: Positive: Alert, Muscle Tone Normal Psychological Exam: Normal Skin Exam: Normal Dental Complaint Course/Dx - Course Course Of Treatment: ibuprofen, hydrocodone, amoxicillin follow with dentist as soon as possible - Differential Dx/Diagnosis Provider Diagnosis: Dental abscess Discharge - Sign-Out/Discharge Documenting (check all that apply): Patient Departure All imaging exams completed and their final reports reviewed: No Studies - Discharge Plan Condition: Stable Disposition: HOME Prescriptions: Amoxicillin PO (*) [Amoxicillin 500 MG CAP*] 500 mg PO TID #30 cap Hydrocodone/Acetaminophen [Hydrocodone-Acetamin 5-325 mg] 1 - 2 each PO Q6HR PRN #15 tablet MDD 8 PRN Reason: Pain - Unrelieved Ibuprofen [Ibu] 600 mg PO QID PRN #40 tablet PRN Reason: Pain Patient Education Materials: Dental Abscess (ED), Toothache (ED) Referrals: [facility] [Outside] - If Needed Additional Instructions: Follow with dentist as planned - Billing Disposition and Condition Condition: STABLE Disposition: Home
== END 2018-12-16 20:15 | disposition home or self-care (01) ==
LOC: UCEAST 18:04
DX: K04.7 Periapical abscess without sinus (principal); K00.6 Disturbances in tooth eruption; F17.210 Nicotine dependence, cigarettes, uncomplicated
CPT/HCPCS: 99212; A9270-GY; G0463

== ENCOUNTER 2019-01-10 21:22 | Emergency (ER) | payer SELFPAY ==
[2019-01-10 21:58] VITALS: BP 140/74
--- NOTE | 2019-01-10 22:42 | UC ---
Dental HPI - HPI Summary HPI Summary: 28-year-old male presents with complaints of dental pain to his right upper and lower wisdom teeth for the past 2 days. Reports some mild right facial swelling. He was seen at this facility on 12/16/2018 for similar complaints. States he had an appointment to have them extracted but his insurance was not going to be active at the time of his original appointment and has had to reschedule for February. He has taken ibuprofen 600 mg with minimal relief in his pain. Denies fever, chills, trismus, dysphagia, or difficulty breathing. - History of Current Complaint Chief Complaint: UCDentalProblem Stated Complaint: TOOTH PAIN Time Seen by Provider: 01/10/19 22:19 Hx Obtained From: Patient Pain Intensity: 9 - Allergies/Home Medications Allergies/Adverse Reactions: Allergies Allergy/AdvReac Type Severity Reaction Status Date / Time No Known Allergies Allergy Verified 01/10/19 21:59 PMH/Surg Hx/FS Hx/Imm Hx Previously Healthy: Yes Other History Of: Negative For: Anticoagulant Therapy - Surgical History Surgical History: Yes Surgery Procedure, Year, and Place: ENDOSCOPY. RIGHT leg fracture. LEFT wrist fracture - Family History Known Family History: Positive: Cardiac Disease, Diabetes, Respiratory Disease - asthma, Other - [place] - Social History Occupation: Employed Full-time Lives: Alone Alcohol Use: Daily Substance Use Type: Marijuana Substance Use Comment - Amount & Last Used: daily Smoking Status (MU): Light Every Day Tobacco Smoker Type: Cigarettes Amount Used/How Often: 3 CIG/DAY Have You Smoked in the Last Year: Yes - in the process of quitting - Immunization History Most Recent Tetanus Shot: unknown Review of Systems All Other Systems Reviewed And Are Negative: Yes Constitutional: Negative: Fever, Chills ENT: Positive: Dental Pain Respiratory: Positive: Negative Cardiovascular: Positive: Negative Gastrointestinal: Positive: Negative Genitourinary: Positive: Negative Musculoskeletal: Positive: Negative Neurological: Positive: Negative Is Patient Immunocompromised?: No Physical Exam - Summary Physical Exam Summary: GENERAL APPEARANCE: Well developed, well nourished, alert and cooperative, and appears to be in no acute distress. HEAD: Atraumatic. Normocephalic. No facial swelling. THROAT: Pharynx normal. No tonsilar inflammation, swelling, exudate, or lesions. Uvula midline. Overall poor dentition. There is significant decay of the right upper and lower 3rd molars with gingival erythema without induration, fluctuance, or drainage noted. No trismus. NECK: Neck supple, non-tender without lymphadenopathy. CARDIAC: Normal S1 and S2. No S3, S4 or murmurs. Rhythm is regular. There is no peripheral edema, cyanosis or pallor. Extremities are warm and well perfused. Capillary refill is less than 2 seconds. Peripheral pulses intact. LUNGS: Clear to auscultation without rales, rhonchi, wheezing or diminished breath sounds. ABDOMEN: Positive bowel sounds. Soft, nondistended, nontender. No guarding or rebound. No masses or hepatosplenomegally. MUSKULOSKELETAL: ROM intact to all extremities. No joint erythema or tenderness. Normal muscular development. Normal gait. SKIN: Skin normal color, texture and turgor with no lesions or eruptions. Triage Information Reviewed: Yes Vital Signs: Initial Vital Signs Temp 99.5 F 01/10/19 21:57 Pulse 100 01/10/19 21:57 Resp 18 01/10/19 21:57 BP 140/74 01/10/19 21:57 Pulse Ox 96 01/10/19 21:57 Vital Signs Reviewed: Yes Dental Complaint Course/Dx - Course Course Of Treatment: 28-year-old male presents with complaints of dental pain to his right upper and lower wisdom teeth for the past 2 days. Reports some mild right facial swelling. He was seen at this facility on 12/16/2018 for similar complaints. States he had an appointment to have them extracted but his insurance was not going to be active at the time of his original appointment and has had to reschedule for February. He has taken ibuprofen 600 mg with minimal relief in his pain. Denies fever, chills, trismus, dysphagia, or difficulty breathing. Afebrile. Hypertensive otherwise VSS. Patient had overall poor dentition with significant decay of the right upper and lower 3rd molars with gingival erythema without induration, fluctuance, drainage or trismus noted. He prescribed Augmentin 875 mg 1 tab BID x 10 days to treat for likely dental infection. He is to continue to use ibuprofen 600 mg 1 tab TID as needed for pain and was provided 2 tabs [place] to use every 6 hours as needed for severe pain. He is to keep his appointment with the dentist as scheduled. Anticipatory guidance and warning symptoms reviewed with the patient. Verbalizes understanding and agrees with POC. - Differential Dx/Diagnosis Differential Diagnosis/Dx: Dental Abscess, Dental Caries, Fractured Tooth, Odontogenic Pain, Peridontic Disease Provider Diagnosis: Pain, dental Discharge - Sign-Out/Discharge Documenting (check all that apply): Patient Departure All imaging exams completed and their final reports reviewed: No Studies - Discharge Plan Condition: Stable Disposition: HOME Prescriptions: Amoxicillin/Clavulanate TAB* [Augmentin TAB 875*] 875 mg PO BID #20 tab Ibuprofen [Ibu] 600 mg PO QID PRN #40 tablet PRN Reason: Pain Patient Education Materials: Toothache (ED) Referrals: No Primary Care Phys,NOPCP [Primary Care Provider] - Additional Instructions: Start Augmentin 875 mg 1 tab twice a day for 10 days. Take with food was upset stomach. Make sure you complete the entire course even if feeling better. Take ibuprofen 600 mg 4 times a day as needed for pain. You were given 2 doses of hydrocodone-acetaminophen 5 mg/325 mg. Take 1 tablet every 6 hours as needed for severe pain. Be sure to rinse your mouth out with a warm salt water solution after every time you eat to remove any debris. Keep your dentist appointment as scheduled. Your blood pressure was elevated in the clinic today. It is recommended that you follow up with your primary care provider within 4 weeks to have this rechecked. Seek immediate medical attention in the emergency room if you develop fever greater than 100.5 F, you are unable to open of close your mouth, are unable to swallow, have difficulty breathing, or any worsening of symptoms. - Billing Disposition and Condition Condition: STABLE Disposition: Home
[2019-01-10] MEDS ORDERED: HYDROcodone/ACETAMIN 5-325 MG* 1 TAB PO ONE (22:44)
[2019-01-10] MEDS ORDERED: Amoxicillin/Clavulanate TAB* 875 MG PO ONE (22:44)
== END 2019-01-10 23:00 | disposition home or self-care (01) ==
LOC: UCEAST 21:22
DX: K08.89 Other specified disorders of teeth and supporting structures (principal); F17.210 Nicotine dependence, cigarettes, uncomplicated
CPT/HCPCS: 99213; A9270-GY; G0463

== ENCOUNTER 2019-06-22 08:52 | Emergency (ER) | payer SELFPAY ==
[2019-06-22 09:06] VITALS: BP 122/67
--- NOTE | 2019-06-22 09:19 | UC ---
Lower Extremity/Ankle HPI - HPI Summary HPI Summary: 1 WEEK OF PAIN, SWELLING AND REDNESS IN HIS RIGHT FOOT. STATES HE STEPPED ON HIS SON'S TOY PRIOR TO ONSET OF SYMPTOMS BUT PAIN AND SWELLING ARE NOT IN THE SAME AREA. - History of Current Complaint Chief Complaint: UCLowerExtremity Stated Complaint: RIGHT FOOT INJURY Time Seen by Provider: 06/22/19 09:18 Hx Obtained From: Patient Onset/Duration: Gradual Onset, Lasting Days, Still Present Severity Initially: Moderate Severity Currently: Moderate Pain Intensity: 7 Pain Scale Used: 0-10 Numeric Aggravating Factor(s): Standing, Ambulation Alleviating Factor(s): Rest Able to Bear Weight: Yes - WITH PAIN - Allergies/Home Medications Allergies/Adverse Reactions: Allergies Allergy/AdvReac Type Severity Reaction Status Date / Time No Known Allergies Allergy Verified 06/22/19 08:59 Home Medications: Home Medications Albuterol HFA INHALER* [Ventolin HFA Inhaler*] 1 puff INH Q4H PRN 06/22/19 [ History Confirmed 06/22/19] Naproxen Sodium [Aleve] 440 mg PO ONCE 06/22/19 [History Confirmed 06/22/19] PMH/Surg Hx/FS Hx/Imm Hx Respiratory History: Asthma GI/ History: Gastroesophageal Reflux Other History Of: Negative For: Anticoagulant Therapy - Surgical History Surgical History: Yes Surgery Procedure, Year, and Place: ENDOSCOPY. - Family History Known Family History: Positive: Cardiac Disease, Diabetes, Respiratory Disease - asthma, Other - [place] - Social History Alcohol Use: Rare Substance Use Type: Marijuana Substance Use Comment - Amount & Last Used: daily Smoking Status (MU): Light Every Day Tobacco Smoker Type: Cigarettes Amount Used/How Often: 2 CIG/DAY Have You Smoked in the Last Year: Yes - in the process of quitting - Immunization History Most Recent Tetanus Shot: unknown Review of Systems All Other Systems Reviewed And Are Negative: Yes Constitutional: Positive: Negative Skin: Positive: Other - ERYTHEMA Respiratory: Positive: Negative Cardiovascular: Positive: Negative Gastrointestinal: Positive: Negative Musculoskeletal: Positive: Decreased ROM, Edema Physical Exam Triage Information Reviewed: Yes Appearance: Well-Appearing, No Pain Distress, Well-Nourished Vital Signs: Initial Vital Signs Temp 98.3 F 06/22/19 09:00 Pulse 87 06/22/19 09:00 Resp 18 06/22/19 09:00 BP 122/67 06/22/19 09:00 Pulse Ox 98 06/22/19 09:00 Vital Signs Reviewed: Yes Eyes: Positive: Conjunctiva Clear ENT: Positive: Hearing grossly normal Neck: Positive: Supple Respiratory: Positive: No respiratory distress, No accessory muscle use Cardiovascular: Positive: Pulses Normal Abdomen Description: Positive: Soft Musculoskeletal: Positive: ROM Limited @ - RIGHT TOES, Edema @ - RIGHT FOOT Neurological: Positive: Alert Psychological: Positive: Age Appropriate Behavior Skin: Positive: Other - ERYTHEMA DORSAL RIGHT FOOT, 4TH TOE WITH LYMPHANGITIC STREAKING UP TO ANTERIOR ANKLE. MACERATED SKIN 2ND AND 3RD [employer] RIGHT FOOT Lower Extremity Course/Dx - Course Course Of Treatment: PATIENT WITH LYMPHANGITIS AND CELLULITIS OF RIGHT FOOT LIKELY STEMMING FROM BROKEN/MACERATED SKIN IN BETWEEN HIS TOES. PATIENT ADMITS THAT AFTER HE GETS OUT OF THE SHOWER HE DOESN'T ADEQUATELY TOWEL DRY. 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 ADVISED TO MAKE A DIRECTED EFFORT AT CLEANING AND DRYING ADEQUATELY IN BETWEEN HIS TOES THIS IS LIKELY THE SOURCE OF HIS INFECTION. WILL COVER WITH BACTRIM TWICE DAILY FOR 10 DAYS. ENCOURAGED TO KEEP THE FOOT COOL, CLEAN AND DRY. FOLLOW-UP IF NEEDED. NO INDICATION FOR IMAGING. PRESENTATION NOT CONSISTENT WITH TRAUMATIC INJURY. - Differential Dx/Diagnosis Provider Diagnosis: Cellulitis of right foot Discharge ED - Sign-Out/Discharge Documenting (check all that apply): Patient Departure All imaging exams completed and their final reports reviewed: No Studies - Discharge Plan Condition: Stable Disposition: HOME Prescriptions: Sulfamethox/Trimethoprim DS* [Bactrim DS 800/160 TAB*] 1 tab PO BID #20 tab Patient Education Materials: Cellulitis (ED), Lymphangitis (ED) Forms: *Work Release Referrals: [facility] [Outside] - If Needed Additional Instructions: YOU HAVE A SKIN INFECTION STEMMING FROM THE MACERATED SKIN IN BETWEEN YOUR TOES. BE SURE TO KEEP THE AREA IN BETWEEN YOUR TOES COOL, CLEAN AND DRY ABLE. AFTER YOU SHOWER USE A Q-TIP/CLEAN TOWEL TO CLEAN AND DRY IN BETWEEN YOUR TOES. SHOES OFF ABLE TO ALLOW THE SKIN TO BREATHE. SEEK REEVALUATION IF AFTER 48 HOURS AND ANTIBIOTICS YOU HAVE CONTINUED SPREADING REDNESS OF THE SKIN, PURULENT DRAINAGE, INCREASED PAIN, FEVER OR ANY OTHER CONCERNING SYMPTOMS. CALL THE NUMBER BELOW FOR ASSISTANCE IN ESTABLISHING WITH A PCP An additional resource available to assist in finding the appropriate physician for your health care needs is the [facility] ([facility]). You may contact them by calling [phone]. - Billing Disposition and Condition Condition: STABLE Disposition: Home
== END 2019-06-22 09:40 | disposition home or self-care (01) ==
LOC: UCEAST 08:52
DX: L03.115 Cellulitis of right lower limb (principal); I89.1 Lymphangitis; J45.909 Unspecified asthma, uncomplicated; F17.210 Nicotine dependence, cigarettes, uncomplicated; Z79.899 Other long term (current) drug therapy
CPT/HCPCS: 99212; G0463

== ENCOUNTER 2019-09-19 18:18 | Emergency (ER) | payer SELFPAY ==
[2019-09-19 19:34] VITALS: BP 135/81
--- NOTE | 2019-09-19 19:59 | UC ---
Dental HPI - HPI Summary HPI Summary: 29 yo with known decay and no dental insurance, with one week hx of pain in a left lower molar. No fever, mild swelling. - History of Current Complaint Chief Complaint: UCDentalProblem Stated Complaint: DENTAL PAIN Time Seen by Provider: 09/19/19 19:53 Hx Obtained From: Patient Onset/Duration: Gradual Onset, Lasting Days Pain Intensity: 9 Aggravating Factor(s): Heat, Cold, Chewing Alleviating Factor(s): OTC Meds Related History: Swelling - Allergies/Home Medications Allergies/Adverse Reactions: Allergies Allergy/AdvReac Type Severity Reaction Status Date / Time No Known Allergies Allergy Verified 09/19/19 19:34 Home Medications: Home Medications Acetaminophen [Tylenol] 650 mg PO Q6HR 09/19/19 [History Confirmed 09/19/19] Ibuprofen TAB* [Motrin TAB* 400 MG] 400 mg PO DAILY 09/19/19 [History Confirmed 09/19/19] PMH/Surg Hx/FS Hx/Imm Hx Previously Healthy: Yes Other History Of: Negative For: Anticoagulant Therapy - Surgical History Surgical History: Yes Surgery Procedure, Year, and Place: ENDOSCOPY. - Family History Known Family History: Positive: Cardiac Disease, Diabetes, Respiratory Disease - asthma, Other - [place] - Social History Occupation: Employed Full-time Lives: With Family Alcohol Use: None Substance Use Type: Marijuana Substance Use Comment - Amount & Last Used: daily Smoking Status (MU): Current Every Day Smoker Type: Cigarettes Amount Used/How Often: 2 CIG/DAY Have You Smoked in the Last Year: Yes - in the process of quitting - Immunization History Most Recent Tetanus Shot: unknown Review of Systems All Other Systems Reviewed And Are Negative: Yes Constitutional: Positive: Negative Skin: Positive: Negative Eyes: Positive: Negative ENT: Positive: Dental Pain Respiratory: Positive: Negative Cardiovascular: Positive: Negative Gastrointestinal: Positive: Negative Genitourinary: Positive: Negative Neurological/Mental Status: Positive: Negative. Negative: Headache Psychological: Positive: Negative Is Patient Immunocompromised?: No Physical Exam Triage Information Reviewed: Yes Appearance: Well-Appearing, Pain Distress - moderate Vital Signs: Initial Vital Signs Temp 98.9 F 09/19/19 19:29 Pulse 87 09/19/19 19:29 Resp 16 09/19/19 19:29 BP 135/81 09/19/19 19:29 Pulse Ox 100 09/19/19 19:29 Eyes: Positive: Conjunctiva Clear ENT: Positive: Pharynx normal, TMs normal Dental: Positive: Gross Decay/Caries @ - 19, Abscess @ - 19, Other: - mild lower left cheek swelling. Neck: Positive: Supple, Nontender, No Lymphadenopathy Respiratory: Positive: Lungs clear, Normal breath sounds Cardiovascular: Positive: RRR, No Murmur Musculoskeletal Exam: Normal Neurological Exam: Normal Psychological Exam: Normal Skin Exam: Normal Images Dental: 1 - gross decay, gum inflammation Dental Complaint Course/Dx - Course Course Of Treatment: Penicillin for treatment of infection, naproxen for pain - Differential Dx/Diagnosis Differential Diagnosis/Dx: Dental Abscess, Dental Caries, Fractured Tooth Provider Diagnosis: Dental abscess Discharge ED - Sign-Out/Discharge Documenting (check all that apply): Patient Departure All imaging exams completed and their final reports reviewed: No Studies - Discharge Plan Condition: Stable Disposition: HOME Prescriptions: Penicillin VK 500 MG TAB(NF) [Penicillin VK 500 mg Tab] 500 mg PO QID #28 tab Patient Education Materials: Dental Abscess (ED) Referrals: No Primary Care Phys,NOPCP [Primary Care Provider] - Additional Instructions: Please take the full course of antibiotic, and use naproxen as needed for control of pain. Do not combine use of naproxen and ibuprofen (too much anti-inflammatory), but you can use additional aceteminophen (Tylenol) 1000mg three times daily for additional control of pain. As reviewed, you will arrange a dental check. - Billing Disposition and Condition Condition: STABLE Disposition: Home
== END 2019-09-19 20:20 | disposition home or self-care (01) ==
LOC: UCEAST 18:18
DX: K04.7 Periapical abscess without sinus (principal); F17.210 Nicotine dependence, cigarettes, uncomplicated
CPT/HCPCS: 99212; G0463